=== PATIENT | female | born 1970 | race American Indian/Alaskan Native ===

== ENCOUNTER 2018-03-27 17:25 | Emergency (ER) | payer OTHER ==
[2018-03-27 17:34] VITALS: BP 122/85; PULSE 95; TEMP 98.6; BMI 21.6
--- NOTE | 2018-03-27 17:34 | PDOC ---
Rapid Medical Evaluation Time Seen by Provider: 03/27/18 17:25 Medical Evaluation: 03/27/18 17:26 I have performed a brief in-person evaluation of the patient. The patient presents with a chief complaints of abdominal pain 3-4 days ago with no nausea, vomiting, constipation or diarrhea. Seen by pmd who referred her to ed after cat scan with abscess/ fluid collection in uterus. Pertinent physical exam findings: NAD unlabored breathing mid abdomen with mild tenderness with palpation I have ordered the following: labs and urine The patient will proceed to the ED for further evaluation.
[2018-03-27 18:23] LABS: BASO % 0.4 % (0-2.0); EOS % 0.4 % (0-4.5); HEMATOCRIT 34.5 % (32.4-45.2); HEMOGLOBIN 11.3 GM/dL (10.7-15.3); LYMPH % 25.9 % (8-40); MCH 23.2 pg (25.7-33.7); MCHC 32.6 g/dl (32.0-36.0); MEAN CELL VOLUME 71.2 fl (80-96); MONO % 11.1 % (3.8-10.2); NEUT % 62.2 % (42.8-82.8); PLATELET COUNT 236 K/MM3 (134-434); RBC 4.85 M/mm3 (3.60-5.2); RDW 14.1 % (11.6-15.6); WHITE BLOOD COUNT 4.9 K/mm3 (4.0-10.0)
[2018-03-27 18:33] LABS: INR 1.03 (0.82-1.09); PROTHROMBIN TIME (PATIENT) 11.6 SEC (9.7-13.0)
[2018-03-27 18:36] LABS: ACTIVATED PTT 37.1 SECONDS (26.9-34.4)
[2018-03-27 18:46] LABS: ANION GAP 4 (8-16); BLOOD UREA NITROGEN 10 mg/dL (7-18); CALCIUM 8.6 mg/dL (8.5-10.1); CHLORIDE 110 mmol/L (98-107); CO2 26 mmol/L (21-32); CREATININE 0.5 mg/dL (0.55-1.02); GLUCOSE,RANDOM 95 mg/dL (74-106); POTASSIUM 3.7 mmol/L (3.5-5.1); SGOT/AST 10 U/L (15-37); SGPT/ALT 14 U/L (12-78); SODIUM 140 mmol/L (136-145)
[2018-03-27 18:48] LABS: ALBUMIN 4.1 g/dl (3.4-5.0); ALK PHOS 35 U/L (45-117); BILIRUBIN,TOTAL 0.3 mg/dL (0.2-1.0); TOT PROT 7.3 g/dl (6.4-8.2)
[2018-03-27 19:40] LABS: URINE APPEARANCE CLEAR; URINE BILIRUBIN NEGATIVE (<2.0 mg/dL); URINE COLOR COLORLESS; URINE GLUCOSE (UA) NEGATIVE (NEGATIVE); URINE KETONE TRACE (NEGATIVE); URINE LEUK ESTERASE NEGATIVE (NEGATIVE); URINE NITRITE NEGATIVE (NEGATIVE); URINE PROTEIN NEGATIVE (NEGATIVE); URINE UROBILINOGEN NEGATIVE mg/dL (0.2-1.0)
--- NOTE | 2018-03-27 20:57 | PDOC ---
History of Present Illness - General Chief Complaint: Pain, Acute Stated Complaint: ABD PAIN Time Seen by Provider: 03/27/18 17:25 History Source: Patient Exam Limitations: No Limitations - History of Present Illness Travel History: No Initial Comments: 03/27/18 21:11 Best Contact:[phone] PCP:Dr. Sparkle Ordonez [phone] Pmhx: Chronic abd pain Pshx: 1983: Laparoscopic appendectomy/in [place]/ 1979: Nasal reconstruction Allergies:NKDA LMP:02/12/2018 47-year-old female presents to the emergency department complaining of periumbilical tenderness times one week. Patient states pain is 4/10 dull nonradiating intermittent discomfort. There are no exacerbating factors or alleviating factors. 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 Patient gave her prescription for CAT scan of abdomen and pelvis with and without contrast. Patient had her study done 2 days ago and received a report today. Her CT scan impression states in the region of the lower uterine segment/cervical region there is a lesion seen containing fluid pockets an air. Differential can include abscess collection versus neoplasm. IUD is present in the uterus. Multiple small cysts in the liver. Patient states when she went to get her CT report today, the chief medical technologist advised her to go to the emergency department after reading the impression. Patient denies fever, chills, nausea/vomiting, headache , dizziness, lightheadedness, chest pain, shortness of breath, flank pains, urinary symptoms: Frequency/urgency/hesitancy, hematuria. Patient has similar symptoms 3 months ago and 1 month ago. Patient states the pain is just intermittent and subsided on its own. Past History - Past Medical History Allergies/Adverse Reactions: Allergies Allergy/AdvReac Type Severity Reaction Status Date / Time No Known Allergies Allergy Verified 03/27/18 17:27 Home Medications: Ambulatory Orders NK [No Known Home Medication] 03/27/18 COPD: No Other medical history: liver cysts - Surgical History Appendectomy: Yes - Immunization History Immunization Up to Date: Yes - Suicide/Smoking/Psychosocial Hx Smoking History: Never smoked Review of Systems - Review of Systems Able to Perform ROS?: Yes Comments:: 03/27/18 20:55 CONSTITUTIONAL: Absent: fever, chills, diaphoresis, generalized weakness, malaise, loss of appetite HEENT: Absent: rhinorrhea, nasal congestion, throat pain, throat swelling, difficulty swallowing, mouth swelling, ear pain, eye pain, visual Changes CARDIOVASCULAR: Absent: chest pain, loss of consciousness, palpitations, irregular heart rate, peripheral edema RESPIRATORY: Absent: cough, shortness of breath, dyspnea with exertion, orthopnea, wheezing, stridor, hemoptysis GASTROINTESTINAL: +periumbilical pain x6d Absent: abdominal distension, nausea, vomiting, diarrhea, constipation, melena , hematochezia GENITOURINARY: Absent: dysuria, frequency, urgency, hesitancy, hematuria, flank pain, genital pain MUSCULOSKELETAL: Absent: myalgia, arthralgia, joint swelling SKIN: Absent: rash, itching, pallor HEMATOLOGIC/IMMUNOLOGIC: Absent: easy bleeding, easy bruising, lymphadenopathy, frequent infections ENDOCRINE: Absent: unexplained weight gain, unexplained weight loss, heat intolerance, cold intolerance NEUROLOGIC: Absent: headache, focal weakness or paresthesias, dizziness, unsteady gait, seizure, mental status changes, bladder or bowel incontinence Is the patient limited Upper Sorbian proficient: No *Physical Exam - Vital Signs Last Vital Signs Temp Pulse Resp BP Pulse Ox 98.6 F 95 H 18 122/85 100 03/27/18 17:30 03/27/18 17:30 03/27/18 17:30 03/27/18 17:30 03/27/18 17:30 - Physical Exam Comments: 03/27/18 20:56 GENERAL: Well developed, well nourished. Awake and alert. No acute distress. HEENT: Normocephalic, atraumatic. PERRLA, EOMI. No conjunctival pallor. Sclera are non- icteric. Moist mucous membranes. Oropharynx is clear. NECK: Supple. Full ROM. No JVD. Carotid pulses 2+ and symmetric, without bruits. No thyromegaly. No lymphadenopathy. CARDIOVASCULAR: Regular rate and rhythm. No murmurs, rubs, or gallops. Distal pulses are 2+ and symmetric. PULMONARY: No evidence of respiratory distress. Lungs clear to auscultation bilaterally. No wheezing, rales or rhonchi. ABDOMINAL: Soft. Non-tender. Non-distended. No rebound or guarding. No organomegaly. Normoactive bowel sounds. MUSCULOSKELETAL Normal range of motion at all joints. No bony deformities or tenderness. No CVA tenderness. EXTREMITIES: No cyanosis. No clubbing. No edema. No calf tenderness. SKIN: Warm and dry. Normal capillary refill. No rashes. No jaundice. NEUROLOGICAL: Alert, awake, appropriate. Cranial nerves 2-12 intact. No deficits to light touch and temperature in face, upper extremities and lower extremities. No motor deficits in the in face, upper extremities and lower extremities. Normoreflexic in the upper and lower extremities. Normal speech. Toes are down- going bilaterally. Gait is normal without ataxia. PSYCHIATRIC: Cooperative. Good eye contact. Appropriate mood and affect. ED Treatment Course - LABORATORY CBC & Chemistry Diagram: 03/27/18 18:03 03/27/18 18:03 - ADDITIONAL ORDERS Additional order review: Laboratory Results 03/27/18 03/27/18 03/27/18 18:32 18:03 18:03 PT with INR 11.60 INR 1.03 PTT (Actin FS) 37.1 H Sodium 140 Potassium 3.7 Chloride 110 H Carbon Dioxide 26 Anion Gap 4 L BUN 10 Creatinine 0.5 L Creat Clearance w eGFR > 60 Random Glucose 95 Calcium 8.6 Total Bilirubin 0.3 AST 10 L ALT 14 Alkaline Phosphatase 35 L Total Protein 7.3 Albumin 4.1 Urine Color Colorless Urine Appearance Clear Urine pH 8.0 Ur Specific [place] 1.014 Urine Protein Negative Urine Glucose (UA) Negative Urine Ketones Trace H Urine Blood Negative Urine Nitrite Negative Urine Bilirubin Negative Urine Urobilinogen Negative Ur Leukocyte Esterase Negative 03/27/18 18:03 RBC 4.85 MCV 71.2 L MCHC 32.6 RDW 14.1 MPV 8.0 Neutrophils % 62.2 Lymphocytes % 25.9 Monocytes % 11.1 H Eosinophils % 0.4 Basophils % 0.4 - RADIOLOGY Radiology Studies Ordered: Category Date Time Status TRANSVAGINAL ULTRASOUND US [US] Stat Ultrasound 03/27/18 20:13 Ordered Radiograph Interpretation: 03/27/18 21:40 Transvaginal ultrasound/abdomen: The uterus appears unremarkable in overall size and echotexture. The endometrium measures 0.6 cm in thickness A small amount of fluid is seen within the in the mutual canal An IUD is noted in place The exact position of the IUD within the endometrial canal is uncertain on the basis of the submitted exam Correlation with supplemental sonography is suggested The ovaries demonstrate no discrete abnormality No Doppler evidence of ovarian torsion, sensitivity 70% There is no free intraperitoneal fluid within the lower pelvis No obvious adnexal pathology is seen Progress Note - Progress Note Progress Note: 2115hrs: Called Dr. Sparkle Ordonez/ pt's PMD. Dr. Ordonez states patient is to see her in the office in 2 days/Friday. *DC/Admit/Observation/Transfer Diagnosis at time of Disposition: Abdominal pain Qualifiers: Abdominal location: periumbilical Qualified Code(s): R10.33 - Periumbilical pain - Discharge Dispostion Condition at time of disposition: Stable Admit: No - Referrals Referrals: ON STAFF,NOT [Primary Care Provider] - Susan Samayoa MD [Staff Physician] - - Patient Instructions Printed Discharge Instructions: DI for Abdominal Pain-Adult Additional Instructions: Be sure to follow-up with your doctor: Dr. Sparkle Ordonez this Friday03/29/2018 Return back to the ER for severe/persistent or worsening symptoms Transvaginal Ultrasound tongiht: Transvaginal ultrasound/abdomen: The uterus appears unremarkable in overall size and echotexture. The endometrium measures 0.6 cm in thickness A small amount of fluid is seen within the in the mutual canal An IUD is noted in place The exact position of the IUD within the endometrial canal is uncertain on the basis of the submitted exam Correlation with supplemental sonography is suggested The ovaries demonstrate no discrete abnormality No Doppler evidence of ovarian torsion, sensitivity 70% There is no free intraperitoneal fluid within the lower pelvis No obvious adnexal pathology is seen Transvaginal Ultrasound and blood work sent to your doctor's office. - Post Discharge Activity
== END 2018-03-27 22:13 | disposition home or self-care (01) ==
LOC: JER 17:25
DX: R10.33 Periumbilical pain (principal); Z97.5 Presence of (intrauterine) contraceptive device
CPT/HCPCS: 36415; 76830-TC; 80053; 81003; 85025; 85610; 85730; 87086; 99282-25